=== PATIENT | female | born 1940 | race Asian ===

== ENCOUNTER 2018-02-26 06:17 | Day surgery (SDC) | payer MEDICARE, OTHER ==
[2018-02-26] MEDS ORDERED: MIDAZOLAM 1 MG/ML 2 ML INJ (08:46)
[2018-02-26] MEDS ORDERED: PROPOFOL 20 ML (08:46)
[2018-02-26] MEDS ORDERED: LIDOCAINE 2% (SDV) 5 ML INJ (08:46)
== END 2018-02-26 11:24 | disposition home or self-care (01) ==
LOC: GIL 06:17
DX: R19.5 Other fecal abnormalities (principal); K59.00 Constipation, unspecified; Z79.82 Long term (current) use of aspirin; I10 Essential (primary) hypertension; I25.10 Atherosclerotic heart disease of native coronary artery without angina pectoris; Z95.5 Presence of coronary angioplasty implant and graft; E78.5 Hyperlipidemia, unspecified; K64.8 Other hemorrhoids; K64.4 Residual hemorrhoidal skin tags; K63.5 Polyp of colon
CPT/HCPCS: 45380; 88305